=== PATIENT | female | born 1965 | race African-American/Black ===

== ENCOUNTER 2016-10-17 06:15 | Emergency (ER) | payer MEDICAID ==
[~2016-10-17] VITALS: Ht 162.6 cm; Wt 101.0 kg
[~2016-10-17 06:15] MED LIST: DIVA500T3; FLUT1DIS3; GLIM2TAB2 PO; NIFE-1; nifedipine; omeprazole
[2016-10-17] MEDS ORDERED: ACETAMINOPHEN WITH CODEINE 300/30MG TABLET PO ONE (07:30)
[2016-10-17] MEDS ORDERED: CYCLOBENZAPRINE 10MG TABLET PO ONE (07:30)
[2016-10-17 09:25] VITALS: BP 148/87
== END 2016-10-17 09:44 | disposition home or self-care (01) ==
LOC: ER 07:23
DX: M54.5 Low back pain (principal); G89.29 Other chronic pain; H10.9 Unspecified conjunctivitis; J45.909 Unspecified asthma, uncomplicated; F31.9 Bipolar disorder, unspecified; E11.9 Type 2 diabetes mellitus without complications; I10 Essential (primary) hypertension; F12.10 Cannabis abuse, uncomplicated; Z76.0 Encounter for issue of repeat prescription; Z88.1 Allergy status to other antibiotic agents; Z91.013 Allergy to seafood; Z91.018 Allergy to other foods; Z91.010 Allergy to peanuts; Z79.899 Other long term (current) drug therapy; Z98.890 Other specified postprocedural states
CPT/HCPCS: 36415; 80165; 99283

== ENCOUNTER 2016-11-07 10:47 | Emergency (ER) | payer MEDICAID ==
[~2016-11-07] VITALS: Ht 162.6 cm; Wt 102.0 kg
[2016-11-07] MEDS ORDERED: ALBUTEROL (0.083%) 2.5MG/3ML NEB HHN STA (11:33)
[2016-11-07] MEDS ORDERED: PREDNISONE 20MG TABLET PO STA (11:33)
[2016-11-07] MEDS ORDERED: IPRATROPIUM BROMIDE (0.02%) 0.5MG/2.5ML NEB HHN STA (11:33)
[2016-11-07 13:12] VITALS: BP 154/76
== END 2016-11-07 13:15 | disposition home or self-care (01) ==
LOC: ER 11:48
DX: J45.901 Unspecified asthma with (acute) exacerbation (principal); J20.9 Acute bronchitis, unspecified; Z88.1 Allergy status to other antibiotic agents; Z91.041 Radiographic dye allergy status; Z91.010 Allergy to peanuts; Z91.013 Allergy to seafood; Z91.018 Allergy to other foods; Z79.899 Other long term (current) drug therapy
CPT/HCPCS: 71010; 94640; 99283; J7512; J7611

== ENCOUNTER 2017-05-23 09:26 | Emergency (ER) | payer MEDICAID ==
[~2017-05-23] VITALS: Ht 162.6 cm; Wt 104.0 kg
[2017-05-23 09:55] VITALS: BP 152/84
[2017-05-23] MEDS ORDERED: IBUPROFEN 800MG TABLET PO ONE (10:30)
== END 2017-05-23 10:47 | disposition home or self-care (01) ==
LOC: ER 09:41
DX: Z76.0 Encounter for issue of repeat prescription (principal); I10 Essential (primary) hypertension; E11.9 Type 2 diabetes mellitus without complications; M19.90 Unspecified osteoarthritis, unspecified site; F31.9 Bipolar disorder, unspecified; Z88.1 Allergy status to other antibiotic agents; Z91.013 Allergy to seafood; Z88.8 Allergy status to other drugs, medicaments and biological substances; Z91.018 Allergy to other foods
CPT/HCPCS: 99282

== ENCOUNTER 2017-07-27 22:04 | Emergency (ER) | payer MEDICAID ==
[~2017-07-27] VITALS: Ht 162.6 cm; Wt 100.0 kg
[2017-07-27 22:29] VITALS: BP 170/95
== END 2017-07-28 03:15 | disposition left against medical advice (07) ==
LOC: ER 22:04
DX: Z53.21 Procedure and treatment not carried out due to patient leaving prior to being seen by health care provider (principal)
CPT/HCPCS: 82962

== ENCOUNTER 2017-07-28 08:34 | Emergency (ER) | payer MEDICAID ==
[~2017-07-28] VITALS: Ht 165.1 cm; Wt 100.0 kg
[2017-07-28] MEDS ORDERED: VISCOUS LIDOCAINE 2% 15 ML UDC PO STA (09:25)
[2017-07-28] MEDS ORDERED: MAGNESIUM/ALUMINUM HYDROXIDE/SIMETHICONE 30ML UDC PO STA (09:25)
[2017-07-28] MEDS ORDERED: ONDANSETRON HCL 4MG/2ML VIAL IV STA (09:25)
[2017-07-28] MEDS ORDERED: DICYCLOMINE 10 MG/5 ML ORAL SYR PO STA (09:25)
[2017-07-28] MEDS ORDERED: KETOROLAC 30MG/ML VIAL IM STA (09:25)
[2017-07-28] MEDS ORDERED: FAMOTIDINE 20MG/2ML VIAL IV STA (09:25)
[2017-07-28 09:40] LABS: HEMATOCRIT. 39.1 % (36.0-48.0); HEMOGLOBIN. 12.9 g/dL (12.0-16.0); LYMPHOCYTES % 25.9 % (20.0-50.0); MEAN CORPUSCULAR HEMOGLOBIN 23.5 pg (28.0-32.0); MEAN PLATELET VOLUME 8.5 fl (7.4-10.4); NEUTROPHILS % 64.1 % (40.0-76.0); PLATELET 289 x1000/uL (130-400); RED BLOOD CELL COUNT 5.51 mill/uL (4.2-5.4); RED CELL DISTRIBUTION WIDTH 14.2 % (11.6-14.6)
[2017-07-28 09:45] LABS: CHLORIDE 105 mEq/L (98-107)
[2017-07-28 09:46] LABS: PROTHROMBIN TIME 10.6 sec (9.4-11.6)
[2017-07-28 09:54] LABS: CARBON DIOXIDE 29 mEq/L (21-32)
[2017-07-28 10:24] VITALS: BP 182/97
[2017-07-28 10:28] LABS: CLARITY URINE CLEAR (CLEAR); COLOR URINE YELLOW (YELLOW); KETONES URINE NEGATIVE (NEGATIVE); LEUKOCYTE ESTERASE URINE 3+ (NEGATIVE); NITRITE URINE NEGATIVE (NEGATIVE); OCCULT BLOOD URINE NEGATIVE (NEGATIVE); PH URINE 5.5 (4.5-8.0); PROTEIN URINE NEGATIVE (NEGATIVE); SPECIFIC GRAVITY URINE 1.019 (1.005-1.030); UROBILINOGEN URINE 0.2 E.U./dL (0.2-1.0)
[2017-07-28] MEDS ORDERED: NITROFURANTOIN 100MG M/M CAPSULE PO ONE (11:00)
== END 2017-07-28 11:57 | disposition home or self-care (01) ==
LOC: ER 08:36
DX: N39.0 Urinary tract infection, site not specified (principal); J45.909 Unspecified asthma, uncomplicated; I10 Essential (primary) hypertension; E11.9 Type 2 diabetes mellitus without complications; Z98.890 Other specified postprocedural states; Z90.89 Acquired absence of other organs; Z88.1 Allergy status to other antibiotic agents; Z91.013 Allergy to seafood; Z91.018 Allergy to other foods
CPT/HCPCS: 36415; 80053; 81001; 83690; 85025; 85610; 87086; 96372; 96374; 96375; 99284; J1885; J2405; J3490

== ENCOUNTER 2017-08-02 22:36 | Emergency (ER) | payer MEDICAID ==
[~2017-08-02] VITALS: Ht 165.1 cm; Wt 101.0 kg
[2017-08-02 23:14] LABS: CLARITY URINE CLEAR (CLEAR); COLOR URINE YELLOW (YELLOW); KETONES URINE TRACE (NEGATIVE); LEUKOCYTE ESTERASE URINE 2+ (NEGATIVE); NITRITE URINE NEGATIVE (NEGATIVE); OCCULT BLOOD URINE NEGATIVE (NEGATIVE); PROTEIN URINE NEGATIVE (NEGATIVE); UROBILINOGEN URINE 0.2 E.U./dL (0.2-1.0)
[2017-08-03] MEDS ORDERED: KETOROLAC 30MG/ML VIAL IV ONE (01:30)
[2017-08-03] MEDS ORDERED: ONDANSETRON HCL 4MG/2ML VIAL IV ONE (01:30)
[2017-08-03 01:56] LABS: HEMATOCRIT. 38.9 % (36.0-48.0); HEMOGLOBIN. 12.9 g/dL (12.0-16.0); MEAN CORPUSCULAR HEMOGLOBIN 23.6 pg (28.0-32.0); MEAN CORPUSCULAR VOLUME 70.8 fL (81.0-99.0); MEAN PLATELET VOLUME 8.7 fl (7.4-10.4); PLATELET 282 x1000/uL (130-400); RED BLOOD CELL COUNT 5.49 mill/uL (4.2-5.4); RED CELL DISTRIBUTION WIDTH 14.5 % (11.6-14.6)
[2017-08-03 02:05] LABS: CHLORIDE 101 mEq/L (98-107); PROTHROMBIN TIME 10.4 sec (9.4-11.6)
[2017-08-03 02:14] LABS: HCG SCREEN NEGATIVE
[2017-08-03 02:17] LABS: CARBON DIOXIDE 31 mEq/L (21-32)
[2017-08-03 02:28] LABS: PLATELET ESTIMATE NORMAL
[2017-08-03] MEDS ORDERED: CEFTRIAXONE 1 G PREMIX 50 ML IV NR (04:45)
[2017-08-03 06:50] VITALS: BP 125/69
== END 2017-08-03 07:37 | disposition home or self-care (01) ==
LOC: ER 22:36
DX: N39.0 Urinary tract infection, site not specified (principal); R16.0 Hepatomegaly, not elsewhere classified; E11.9 Type 2 diabetes mellitus without complications; I10 Essential (primary) hypertension; R11.2 Nausea with vomiting, unspecified; Z88.1 Allergy status to other antibiotic agents; Z91.041 Radiographic dye allergy status; Z91.013 Allergy to seafood; Z91.018 Allergy to other foods; Z79.899 Other long term (current) drug therapy
CPT/HCPCS: 36415; 76700; 80053; 81001; 83690; 84703; 85025; 85610; 87086; 96365; 96375; 99285; J0696; J1885; J2405; Z7610

== ENCOUNTER 2017-09-07 17:53 | Emergency (ER) | payer MEDICAID ==
[~2017-09-07] VITALS: Ht 162.6 cm; Wt 100.0 kg
[2017-09-07 18:03] VITALS: BP 160/93
== END 2017-09-07 21:25 | disposition left against medical advice (07) ==
LOC: ER 18:11
DX: R06.02 Shortness of breath (principal); Z53.21 Procedure and treatment not carried out due to patient leaving prior to being seen by health care provider

== ENCOUNTER 2017-09-08 10:09 | Emergency (ER) | payer MEDICAID ==
[~2017-09-08] VITALS: Ht 162.6 cm; Wt 100.0 kg
[2017-09-08] MEDS ORDERED: IPRATROPIUM BROMIDE (0.02%) 0.5MG/2.5ML NEB HHN STA ×2 (14:39→18:23)
[2017-09-08] MEDS ORDERED: ALBUTEROL (0.083%) 2.5MG/3ML NEB HHN STA ×2 (14:39→18:23)
[2017-09-08] MEDS ORDERED: METHYLPREDNISOLONE SOD SUCC 125 MG/2 ML VIAL IV STA (14:39)
[2017-09-08] MEDS ORDERED: SODIUM CHLORIDE 0.9% 1,000 ML IV ONE (14:45)
[2017-09-08 15:16] LABS: CLARITY URINE CLEAR (CLEAR); COLOR URINE YELLOW (YELLOW); KETONES URINE NEGATIVE (NEGATIVE); LEUKOCYTE ESTERASE URINE 2+ (NEGATIVE); NITRITE URINE NEGATIVE (NEGATIVE); OCCULT BLOOD URINE NEGATIVE (NEGATIVE); PH URINE 7.5 (4.5-8.0); PROTEIN URINE NEGATIVE (NEGATIVE); SPECIFIC GRAVITY URINE 1.009 (1.005-1.030)
[2017-09-08] MEDS ORDERED: ACETAMINOPHEN 325MG TABLET PO ONE (15:45)
[2017-09-08 20:29] VITALS: BP 123/78
== END 2017-09-08 20:29 | disposition home or self-care (01) ==
LOC: ER 10:21
DX: J06.9 Acute upper respiratory infection, unspecified (principal); J45.901 Unspecified asthma with (acute) exacerbation; E11.9 Type 2 diabetes mellitus without complications; I10 Essential (primary) hypertension; Z88.3 Allergy status to other anti-infective agents; Z91.041 Radiographic dye allergy status; Z91.010 Allergy to peanuts; Z91.013 Allergy to seafood; Z91.018 Allergy to other foods; Z98.890 Other specified postprocedural states
CPT/HCPCS: 71046; 81003; 81025; 87804; 94640; 96361; 96374; 99285; J2930; J7030; J7611

== ENCOUNTER 2017-09-11 08:23 | Emergency (ER) | payer MEDICAID ==
[~2017-09-11] VITALS: Ht 162.6 cm; Wt 100.0 kg
[2017-09-11 09:17] VITALS: BP 169/87
== END 2017-09-11 10:24 | disposition left against medical advice (07) ==
LOC: ER 10:08
DX: R06.02 Shortness of breath (principal); Z53.21 Procedure and treatment not carried out due to patient leaving prior to being seen by health care provider

== ENCOUNTER 2017-10-16 07:25 | Emergency (ER) | payer MEDICAID ==
[~2017-10-16] VITALS: Ht 162.6 cm; Wt 103.0 kg
[2017-10-16 08:00] LABS: KETONES URINE NEGATIVE (NEGATIVE); LEUKOCYTE ESTERASE URINE 2+ (NEGATIVE); NITRITE URINE NEGATIVE (NEGATIVE); OCCULT BLOOD URINE NEGATIVE (NEGATIVE); PH URINE 5.5 (4.5-8.0); PROTEIN URINE NEGATIVE (NEGATIVE); SPECIFIC GRAVITY URINE 1.017 (1.005-1.030)
[2017-10-16 08:08] LABS: CLARITY URINE CLEAR (CLEAR); COLOR URINE YELLOW (YELLOW)
[2017-10-16] MEDS ORDERED: HYDROCODONE/ACETAMINOPHEN 5/325MG TABLET PO ONE (08:45)
[2017-10-16 10:19] VITALS: BP 127/76
== END 2017-10-16 10:32 | disposition home or self-care (01) ==
LOC: ER 07:25
DX: N39.0 Urinary tract infection, site not specified (principal); I10 Essential (primary) hypertension; E11.9 Type 2 diabetes mellitus without complications; J45.909 Unspecified asthma, uncomplicated; Z91.013 Allergy to seafood; Z88.1 Allergy status to other antibiotic agents; Z91.048 Other nonmedicinal substance allergy status
CPT/HCPCS: 81003; 87086; 99284

== ENCOUNTER 2017-10-18 10:06 | Emergency (ER) | payer MEDICAID ==
[~2017-10-18] VITALS: Ht 162.6 cm; Wt 103.0 kg
[2017-10-18] MEDS ORDERED: KETOROLAC 30MG/ML VIAL IM ONE (11:00)
[2017-10-18 13:00] VITALS: BP 158/79
== END 2017-10-18 13:00 | disposition home or self-care (01) ==
LOC: ER 10:51
DX: S29.011A Strain of muscle and tendon of front wall of thorax, initial encounter (principal); J45.909 Unspecified asthma, uncomplicated; I10 Essential (primary) hypertension; E11.9 Type 2 diabetes mellitus without complications; Z91.013 Allergy to seafood; Z91.018 Allergy to other foods; Z91.010 Allergy to peanuts; Z91.041 Radiographic dye allergy status; Z98.890 Other specified postprocedural states; Z90.89 Acquired absence of other organs; X50.0XXA Overexertion from strenuous movement or load, initial encounter; Y93.89 Activity, other specified; Y92.89 Other specified places as the place of occurrence of the external cause; Y99.8 Other external cause status
CPT/HCPCS: 96372; 99283; J1885; Z7610

== ENCOUNTER 2018-03-10 06:51 | Emergency (ER) | payer MEDICAID ==
[~2018-03-10] VITALS: Ht 162.6 cm; Wt 100.0 kg
[2018-03-10] MEDS ORDERED: SODIUM CHLORIDE 0.9% 1,000 ML IV ONE (09:34)
[2018-03-10] MEDS ORDERED: ONDANSETRON HCL 4MG/2ML INJ IV STA (09:34)
[2018-03-10] MEDS ORDERED: KETOROLAC 30MG/ML VIAL IV STA (09:34)
[2018-03-10 10:01] LABS: CLARITY URINE CLEAR (CLEAR); COLOR URINE YELLOW (YELLOW); KETONES URINE TRACE (NEGATIVE); LEUKOCYTE ESTERASE URINE 2+ (NEGATIVE); NITRITE URINE NEGATIVE (NEGATIVE); OCCULT BLOOD URINE NEGATIVE (NEGATIVE); PH URINE 7.5 (4.5-8.0); PROTEIN URINE NEGATIVE (NEGATIVE); SPECIFIC GRAVITY URINE 1.018 (1.005-1.030)
[2018-03-10 10:06] LABS: CHLORIDE 103 mEq/L (98-107)
[2018-03-10 10:13] LABS: PROTHROMBIN TIME 10.2 sec (9.1-11.1)
[2018-03-10 11:45] LABS: BASOPHILS % 0.4 % (0.0-2.0); EOSINOPHILS % 1.6 % (0.0-5.0); HEMATOCRIT. 41.3 % (36.0-48.0); HEMOGLOBIN. 13.5 g/dL (12.0-16.0); LYMPHOCYTES % 37.1 % (20.0-50.0); MEAN CORPUSCULAR HEMOGLOBIN 23.1 pg (28.0-32.0); MEAN PLATELET VOLUME 9.7 fl (7.4-10.4); MONOCYTES % 7.1 % (2.0-8.0); NEUTROPHILS % 53.8 % (40.0-76.0); PLATELET 281 x1000/uL (130-400); RED BLOOD CELL COUNT 5.81 mill/uL (4.2-5.4); RED CELL DISTRIBUTION WIDTH 15.4 % (11.6-14.6)
[2018-03-10 12:04] VITALS: BP 146/77
== END 2018-03-10 12:45 | disposition home or self-care (01) ==
LOC: ER 07:32
DX: N39.0 Urinary tract infection, site not specified (principal); K76.0 Fatty (change of) liver, not elsewhere classified; R03.0 Elevated blood-pressure reading, without diagnosis of hypertension
CPT/HCPCS: 36415; 76705; 80053; 81003; 83690; 85025; 85610; 96374; 96375; 99285; J1885; J2405; J7030

== ENCOUNTER 2018-04-18 12:36 | Emergency (ER) | payer MEDICAID ==
[~2018-04-18] VITALS: Ht 162.6 cm; Wt 105.0 kg
[2018-04-18] MEDS ORDERED: VISCOUS LIDOCAINE 2% 15 ML UDC PO STA (13:40)
[2018-04-18] MEDS ORDERED: MAGNESIUM/ALUMINUM HYDROXIDE/SIMETHICONE 30ML UDC PO STA (13:40)
[2018-04-18] MEDS ORDERED: IPRATROPIUM BROMIDE (0.02%) 0.5MG/2.5ML NEB HHN STA (13:40)
[2018-04-18] MEDS ORDERED: FAMOTIDINE 20MG TABLET PO ONE (13:45)
[2018-04-18] MEDS ORDERED: ALBUTEROL (0.083%) 2.5MG/3ML NEB HHN SCH (14:00)
[2018-04-18 15:17] LABS: BASOPHILS % 2.1 % (0.0-2.0); EOSINOPHILS % 0.9 % (0.0-5.0); HEMATOCRIT. 39.9 % (36.0-48.0); HEMOGLOBIN. 13.1 g/dL (12.0-16.0); LYMPHOCYTES % 35.8 % (20.0-50.0); MEAN CORPUSCULAR HEMOGLOBIN 23.3 pg (28.0-32.0); MEAN CORPUSCULAR VOLUME 70.8 fL (81.0-99.0); MEAN PLATELET VOLUME 9.1 fl (7.4-10.4); MONOCYTES % 6.4 % (2.0-8.0); NEUTROPHILS % 54.8 % (40.0-76.0); PLATELET 295 x1000/uL (130-400); RED BLOOD CELL COUNT 5.64 mill/uL (4.2-5.4); RED CELL DISTRIBUTION WIDTH 15.3 % (11.6-14.6)
[2018-04-18 15:22] LABS: PROTHROMBIN TIME 10.2 sec (9.1-11.1)
[2018-04-18 15:25] LABS: CHLORIDE 104 mEq/L (98-107)
[2018-04-18 15:37] LABS: CLARITY URINE CLEAR (CLEAR); COLOR URINE YELLOW (YELLOW); KETONES URINE TRACE (NEGATIVE); LEUKOCYTE ESTERASE URINE 2+ (NEGATIVE); NITRITE URINE NEGATIVE (NEGATIVE); OCCULT BLOOD URINE NEGATIVE (NEGATIVE); PROTEIN URINE NEGATIVE (NEGATIVE); SPECIFIC GRAVITY URINE 1.022 (1.005-1.030)
[2018-04-18 17:08] VITALS: BP 143/78
== END 2018-04-18 17:09 | disposition home or self-care (01) ==
LOC: ER 15:14
DX: J06.9 Acute upper respiratory infection, unspecified (principal); N39.0 Urinary tract infection, site not specified; J45.909 Unspecified asthma, uncomplicated; E11.9 Type 2 diabetes mellitus without complications; F12.10 Cannabis abuse, uncomplicated; Z98.890 Other specified postprocedural states; Z90.49 Acquired absence of other specified parts of digestive tract; Z88.1 Allergy status to other antibiotic agents; Z91.013 Allergy to seafood; Z91.041 Radiographic dye allergy status; Z91.018 Allergy to other foods
CPT/HCPCS: 36415; 71045; 80053; 81003; 81025; 83880; 84484; 85025; 85610; 93005; 94640; 99285; J7611

== ENCOUNTER 2018-05-21 12:28 | Emergency (ER) | payer MEDICAID ==
[~2018-05-21] VITALS: Ht 162.6 cm; Wt 105.6 kg
[2018-05-21 13:07] VITALS: BP 175/92
== END 2018-05-21 15:10 | disposition left against medical advice (07) ==
LOC: ER 12:28
DX: Z53.21 Procedure and treatment not carried out due to patient leaving prior to being seen by health care provider (principal)

== ENCOUNTER 2018-09-28 01:27 | Inpatient (IN) | payer MEDICAID ==
[~2018-09-28] VITALS: Ht 167.6 cm; Wt 95.3 kg
[2018-09-28 02:40] LABS: CLARITY URINE CLEAR (CLEAR); COLOR URINE YELLOW (YELLOW); KETONES URINE NEGATIVE (NEGATIVE); LEUKOCYTE ESTERASE URINE 1+ (NEGATIVE); NITRITE URINE NEGATIVE (NEGATIVE); OCCULT BLOOD URINE NEGATIVE (NEGATIVE); PH URINE 6.5 (4.5-8.0); PROTEIN URINE NEGATIVE (NEGATIVE); SPECIFIC GRAVITY URINE 1.023 (1.005-1.030)
[2018-09-28] MEDS ORDERED: KETOROLAC 30MG/ML VIAL IV STA (03:36)
[2018-09-28] MEDS ORDERED: SODIUM CHLORIDE 0.9% 1,000 ML IV ONE (03:36)
[2018-09-28] MEDS ORDERED: ONDANSETRON HCL 4MG/2ML INJ IV ONE (03:45)
[2018-09-28] MEDS ORDERED: FAMOTIDINE 20MG/2ML VIAL IV ONE (03:45)
[2018-09-28 03:51] LABS: BASOPHILS % 1.7 % (0.0-2.0); CHLORIDE 107 mEq/L (98-107); EOSINOPHILS % 1.3 % (0.0-5.0); HEMATOCRIT. 37.3 % (36.0-48.0); HEMOGLOBIN. 12.3 g/dL (12.0-16.0); LYMPHOCYTES % 33.3 % (20.0-50.0); MEAN CORPUSCULAR HEMOGLOBIN 22.9 pg (28.0-32.0); MEAN CORPUSCULAR VOLUME 69.6 fL (81.0-99.0); NEUTROPHILS % 56.7 % (40.0-76.0); PLATELET 310 x1000/uL (130-400); RED BLOOD CELL COUNT 5.36 mill/uL (4.2-5.4); RED CELL DISTRIBUTION WIDTH 14.4 % (11.6-14.6)
[2018-09-28 05:44] LABS: PLATELET ESTIMATE NORMAL
[2018-09-28] MEDS ORDERED: IBUPROFEN 600MG TABLET PO PRN (06:15)
[2018-09-28 10:00] VITALS: BP 148/81
[2018-09-28] MEDS ORDERED: DEXTROSE 50% WATER 50ML SYRINGE IV PRN (12:00)
[2018-09-28] MEDS ORDERED: ONDANSETRON HCL 4MG/2ML INJ IV PRN (12:00)
[2018-09-28 12:08] VITALS: BP 148/81
[2018-09-28] MEDS: BLOOD SUGAR DIAGNOSTIC STRIP TEST SCH ×3 (12:20→21:33)
[2018-09-28] MEDS: INSULIN LISPRO 100 UNITS/ML SUBCUT SCH ×3 (12:50→21:00)
[2018-09-28] MEDS ORDERED: SODIUM CHLORIDE 0.9% 1,000 ML IV SCH (13:00)
[2018-09-28] MEDS ORDERED: CEFTRIAXONE 1 G PREMIX 50 ML IV SCH (14:00)
[2018-09-28 14:30] LABS: *AMPHETAMINES SCREEN URINE NEGATIVE (NEGATIVE); *BARBITURATES SCREEN URINE NEGATIVE (NEGATIVE); *BENZODIAZEPINES SCREEN URINE NEGATIVE (NEGATIVE); *COCAINE SCREEN URINE NEGATIVE (NEGATIVE); CANNABINOID URINE SCREEN PRESUMTIVE POSITIVE (NEGATIVE); METHADONE URINE SCREEN NEGATIVE (NEGATIVE); OPIATES URINE SCREEN NEGATIVE (NEGATIVE); PHENCYCLIDINE URINE SCREEN NEGATIVE (NEGATIVE)
[2018-09-28] MEDS: PANTOPRAZOLE SODIUM 40 MG/VIAL IV SCH (14:45)
[2018-09-28] MEDS: MORPHINE SULFATE 4 MG/ML CPJ (NOT FOR IM USE) IV PRN ×2 (15:58→21:15)
[2018-09-28 16:00] VITALS: BP 153/76
[2018-09-28] MEDS ORDERED: IPRATROPIUM/ALBUTEROL 0.5-3(2.5)MG/3ML NEB HHN PRN (18:30)
[2018-09-28 20:00] VITALS: BP 131/66
[2018-09-28] MEDS ORDERED: AMLODIPINE 5MG TABLET PO SCH (21:00)
[2018-09-29] VITALS: BP 124/73
[2018-09-29 04:00] VITALS: BP 146/89
[2018-09-29] MEDS: KETOROLAC 30MG/ML VIAL IV PRN ×2 (04:31→11:11)
[2018-09-29 07:27] LABS: BASOPHILS % 0.7 % (0.0-2.0); EOSINOPHILS % 2.1 % (0.0-5.0); HEMOGLOBIN. 12.1 g/dL (12.0-16.0); LYMPHOCYTES % 28.7 % (20.0-50.0); MEAN CORPUSCULAR HEMOGLOBIN 22.8 pg (28.0-32.0); MEAN CORPUSCULAR VOLUME 71.5 fL (81.0-99.0); MEAN PLATELET VOLUME 8.7 fl (7.4-10.4); MONOCYTES % 8.6 % (2.0-8.0); NEUTROPHILS % 59.9 % (40.0-76.0); PLATELET 294 x1000/uL (130-400); RED BLOOD CELL COUNT 5.32 mill/uL (4.2-5.4); RED CELL DISTRIBUTION WIDTH 14.5 % (11.6-14.6)
[2018-09-29] MEDS: BLOOD SUGAR DIAGNOSTIC STRIP TEST SCH (07:44)
[2018-09-29 08:00] VITALS: BP 130/73
[2018-09-29 08:28] LABS: CHLORIDE 108 mEq/L (98-107)
[2018-09-29] MEDS: PANTOPRAZOLE SODIUM 40 MG/VIAL IV SCH (09:28)
[2018-09-29] MEDS ORDERED: NIFEDIPINE XL 30MG TAB PO SCH (09:30)
[2018-09-29] MEDS ORDERED: DIVALPROEX SODIUM 500MG ER TABLET PO SCH ×3 (09:30→10:00)
[2018-09-29 12:00] VITALS: BP 145/69
[2018-09-29 13:13] VITALS: BP 137/69
[2018-09-30] MEDS ORDERED: DIVALPROEX SODIUM 500MG ER TABLET PO SCH (09:00)
[2018-09-30] MEDS ORDERED: GLIMEPIRIDE 1MG TABLET PO SCH (12:00)
== END 2018-09-29 13:50 | disposition home or self-care (01) | DRG 241 ==
LOC: ER 01:27 → 6EST 06:06 → ENRESERV 07:38
PROVIDERS: ADMIT Internal Medicine; ATTEND Internal Medicine
DX: K29.70 Gastritis, unspecified, without bleeding (principal); K85.90 Acute pancreatitis without necrosis or infection, unspecified; E11.9 Type 2 diabetes mellitus without complications; I10 Essential (primary) hypertension; F12.90 Cannabis use, unspecified, uncomplicated; E66.9 Obesity, unspecified; J45.909 Unspecified asthma, uncomplicated; F31.9 Bipolar disorder, unspecified; K21.9 Gastro-esophageal reflux disease without esophagitis; K27.9 Peptic ulcer, site unspecified, unspecified as acute or chronic, without hemorrhage or perforation; Z71.3 Dietary counseling and surveillance; Z82.49 Family history of ischemic heart disease and other diseases of the circulatory system; Z88.1 Allergy status to other antibiotic agents; Z91.041 Radiographic dye allergy status; Z91.010 Allergy to peanuts; Z91.013 Allergy to seafood; Z88.7 Allergy status to serum and vaccine; Z91.018 Allergy to other foods; Z79.899 Other long term (current) drug therapy; Z98.891 History of uterine scar from previous surgery
CPT/HCPCS: 36415; 71045; 80048; 80305; 82962; 83036; 84478; 93970; 96361; 96365; 96375; 99285; C9113; J0696; J1885; J2270; J2405; J3490; J7030

== ENCOUNTER 2019-08-07 00:12 | Emergency (ER) | payer MEDICAID ==
[~2019-08-07] VITALS: Ht 162.6 cm; Wt 98.0 kg
[~2019-08-07 00:12] MED LIST changes: -GLIM2TAB2 PO; +GLIM2TAB30 PO; -NIFE-1; +NIFE-53
[2019-08-07] MEDS ORDERED: SODIUM CHLORIDE 0.9% 1,000 ML IV ONE (01:51)
[2019-08-07] MEDS ORDERED: ACETAMINOPHEN 325MG TABLET PO STA (01:51)
[2019-08-07 02:10] LABS: BASOPHILS % 1.7 % (0.0-2.0); HEMATOCRIT. 38.6 % (36.0-48.0); HEMOGLOBIN. 12.6 g/dL (12.0-16.0); LYMPHOCYTES % 29.7 % (20.0-50.0); MEAN CORPUSCULAR VOLUME 70.7 fL (81.0-99.0); MEAN PLATELET VOLUME 8.4 fl (7.4-10.4); MONOCYTES % 10.2 % (2.0-8.0); NEUTROPHILS % 56.4 % (40.0-76.0); PLATELET 317 x1000/uL (130-400); RED BLOOD CELL COUNT 5.47 mill/uL (4.2-5.4); RED CELL DISTRIBUTION WIDTH 13.9 % (11.6-14.6)
[2019-08-07 02:15] LABS: CHLORIDE 101 mEq/L (98-107)
[2019-08-07 06:33] LABS: CLARITY URINE CLEAR (CLEAR); COLOR URINE YELLOW (YELLOW); KETONES URINE NEGATIVE (NEGATIVE); LEUKOCYTE ESTERASE URINE 3+ (NEGATIVE); NITRITE URINE NEGATIVE (NEGATIVE); OCCULT BLOOD URINE NEGATIVE (NEGATIVE); PH URINE 5.5 (4.5-8.0); PROTEIN URINE NEGATIVE (NEGATIVE); SPECIFIC GRAVITY URINE 1.019 (1.005-1.030); UROBILINOGEN URINE 0.2 E.U./dL (0.2-1.0)
[2019-08-07] MEDS ORDERED: CEPHALEXIN 250MG CAPSULE PO ONE (07:30)
[2019-08-07 07:38] VITALS: BP 172/99
== END 2019-08-07 07:40 | disposition home or self-care (01) ==
LOC: ER 00:12
DX: J45.909 Unspecified asthma, uncomplicated (principal); I10 Essential (primary) hypertension; E11.9 Type 2 diabetes mellitus without complications; F12.10 Cannabis abuse, uncomplicated; Z79.899 Other long term (current) drug therapy; Z88.1 Allergy status to other antibiotic agents; Z91.013 Allergy to seafood; Z91.041 Radiographic dye allergy status; Z91.018 Allergy to other foods; Z98.890 Other specified postprocedural states
CPT/HCPCS: 36415; 71045; 80053; 81003; 85025; 87086; 87804; 99284; J7030

== ENCOUNTER 2019-11-07 08:53 | Emergency (ER) | payer MEDICAID ==
[~2019-11-07] VITALS: Ht 162.6 cm; Wt 106.5 kg
[2019-11-07 09:08] VITALS: BP 159/86
[2019-11-07] MEDS ORDERED: TETRACAINE 0.5% OPHTH DROPS 4ML LEFTEYE ONE (10:00)
[2019-11-07] MEDS ORDERED: FLUORESCEIN SODIUM 1MG/STRIP LEFTEYE ONE (10:00)
== END 2019-11-07 10:06 | disposition home or self-care (01) ==
LOC: ER 09:07
DX: H57.12 Ocular pain, left eye (principal); I10 Essential (primary) hypertension; E11.9 Type 2 diabetes mellitus without complications
CPT/HCPCS: 99283

== ENCOUNTER 2019-12-21 08:14 | Emergency (ER) | payer MEDICAID ==
[~2019-12-21] VITALS: Ht 162.6 cm; Wt 109.0 kg
[2019-12-21] MEDS ORDERED: KETOROLAC 30MG/ML VIAL IV ONE (09:00)
[2019-12-21 09:44] LABS: BASOPHILS % 2.5 % (0.0-2.0); EOSINOPHILS % 2.2 % (0.0-5.0); HEMATOCRIT. 38.9 % (36.0-48.0); HEMOGLOBIN. 13.1 g/dL (12.0-16.0); LYMPHOCYTES % 35.3 % (20.0-50.0); MEAN CORPUSCULAR HEMOGLOBIN 23.6 pg (28.0-32.0); MEAN CORPUSCULAR VOLUME 70.4 fL (81.0-99.0); MEAN PLATELET VOLUME 9.3 fl (7.4-10.4); MONOCYTES % 6.7 % (2.0-8.0); NEUTROPHILS % 53.3 % (40.0-76.0); PLATELET 290 x1000/uL (130-400); RED BLOOD CELL COUNT 5.53 mill/uL (4.2-5.4)
[2019-12-21 09:49] LABS: CHLORIDE 102 mEq/L (98-107)
[2019-12-21 10:51] LABS: CLARITY URINE CLEAR (CLEAR); COLOR URINE YELLOW (YELLOW); KETONES URINE TRACE (NEGATIVE); LEUKOCYTE ESTERASE URINE 2+ (NEGATIVE); NITRITE URINE NEGATIVE (NEGATIVE); OCCULT BLOOD URINE NEGATIVE (NEGATIVE); PH URINE 5.5 (4.5-8.0); PROTEIN URINE NEGATIVE (NEGATIVE); SPECIFIC GRAVITY URINE 1.022 (1.005-1.030)
[2019-12-21] MEDS ORDERED: FLUCONAZOLE 100MG TABLET PO ONE (11:30)
[2019-12-21] MEDS ORDERED: ACETAMINOPHEN WITH CODEINE 300/30MG TABLET PO ONE (11:30)
[2019-12-21 12:01] VITALS: BP 131/70
== END 2019-12-21 12:07 | disposition home or self-care (01) ==
LOC: ER 08:14
DX: N39.0 Urinary tract infection, site not specified (principal); D25.9 Leiomyoma of uterus, unspecified; E11.9 Type 2 diabetes mellitus without complications; I10 Essential (primary) hypertension; J45.909 Unspecified asthma, uncomplicated; F12.10 Cannabis abuse, uncomplicated; Z98.890 Other specified postprocedural states; Z88.1 Allergy status to other antibiotic agents; Z91.041 Radiographic dye allergy status; Z91.010 Allergy to peanuts; Z88.7 Allergy status to serum and vaccine; Z91.018 Allergy to other foods; Z91.013 Allergy to seafood
CPT/HCPCS: 36415; 76830; 76856; 80053; 81003; 81025; 85025; 86850; 86900; 86901; 87086; 96374; 99284; J1885

== ENCOUNTER 2020-01-14 06:41 | Emergency (ER) | payer MEDICAID ==
[~2020-01-14] VITALS: Ht 162.6 cm; Wt 100.0 kg
[2020-01-14] MEDS ORDERED: IBUPROFEN 600MG TABLET PO ONE (07:45)
[2020-01-14] MEDS ORDERED: ACETAMINOPHEN 325MG TABLET PO ONE (08:15)
[2020-01-14 08:19] LABS: CLARITY URINE CLEAR (CLEAR); COLOR URINE YELLOW (YELLOW); KETONES URINE TRACE (NEGATIVE); LEUKOCYTE ESTERASE URINE 1+ (NEGATIVE); NITRITE URINE NEGATIVE (NEGATIVE); OCCULT BLOOD URINE NEGATIVE (NEGATIVE); PROTEIN URINE NEGATIVE (NEGATIVE); SPECIFIC GRAVITY URINE 1.027 (1.005-1.030); UROBILINOGEN URINE 0.2 E.U./dL (0.2-1.0)
[2020-01-14 08:51] VITALS: BP 159/94
== END 2020-01-14 08:54 | disposition home or self-care (01) ==
LOC: ER 06:41
DX: N30.00 Acute cystitis without hematuria (principal); J45.909 Unspecified asthma, uncomplicated; I10 Essential (primary) hypertension; F31.9 Bipolar disorder, unspecified; Z98.890 Other specified postprocedural states; Z88.1 Allergy status to other antibiotic agents; Z91.013 Allergy to seafood; Z91.018 Allergy to other foods; Z91.041 Radiographic dye allergy status; Z91.010 Allergy to peanuts; Z88.7 Allergy status to serum and vaccine
CPT/HCPCS: 81003; 81025; 99283

== ENCOUNTER 2020-06-17 11:32 | Emergency (ER) | payer MEDICAID, OTHER ==
[~2020-06-17] VITALS: Ht 162.6 cm; Wt 105.0 kg
[2020-06-17 12:10] LABS: CLARITY URINE CLEAR (CLEAR); COLOR URINE YELLOW (YELLOW); KETONES URINE TRACE (NEGATIVE); LEUKOCYTE ESTERASE URINE 2+ (NEGATIVE); NITRITE URINE NEGATIVE (NEGATIVE); OCCULT BLOOD URINE NEGATIVE (NEGATIVE); PROTEIN URINE NEGATIVE (NEGATIVE); SPECIFIC GRAVITY URINE 1.019 (1.005-1.030)
[2020-06-17 12:30] VITALS: BP 138/78
== END 2020-06-17 12:30 | disposition home or self-care (01) ==
LOC: ER 11:32
DX: N30.00 Acute cystitis without hematuria (principal); I10 Essential (primary) hypertension; J45.909 Unspecified asthma, uncomplicated; Z91.013 Allergy to seafood; Z91.018 Allergy to other foods; Z88.8 Allergy status to other drugs, medicaments and biological substances; Z79.899 Other long term (current) drug therapy; Z98.890 Other specified postprocedural states
CPT/HCPCS: 81003; 81025; 99283

== ENCOUNTER 2020-12-27 08:37 | Emergency (ER) | payer MEDICAID, OTHER ==
[~2020-12-27] VITALS: Ht 162.6 cm; Wt 93.0 kg
[2020-12-27] MEDS ORDERED: CEPH500T MT (08:54)
[2020-12-27] MEDS ORDERED: FLUCONAZOLE 100MG TABLET PO ONE (09:00)
[2020-12-27] MEDS ORDERED: FLUCONAZOLE 150MG TABLET PO SCH (09:15)
[2020-12-27 09:17] VITALS: BP 149/86
[2020-12-27 09:20] LABS: CLARITY URINE CLEAR (CLEAR); COLOR URINE YELLOW (YELLOW); KETONES URINE TRACE (NEGATIVE); LEUKOCYTE ESTERASE URINE 2+ (NEGATIVE); NITRITE URINE NEGATIVE (NEGATIVE); OCCULT BLOOD URINE NEGATIVE (NEGATIVE); PH URINE 5.5 (4.5-8.0); PROTEIN URINE NEGATIVE (NEGATIVE); SPECIFIC GRAVITY URINE 1.027 (1.005-1.030)
== END 2020-12-27 09:19 | disposition home or self-care (01) ==
LOC: ER 08:37
DX: N39.0 Urinary tract infection, site not specified (principal); I10 Essential (primary) hypertension; J45.909 Unspecified asthma, uncomplicated; Z91.013 Allergy to seafood; Z88.1 Allergy status to other antibiotic agents; Z91.018 Allergy to other foods; Z88.8 Allergy status to other drugs, medicaments and biological substances; Z79.899 Other long term (current) drug therapy; Z98.890 Other specified postprocedural states
CPT/HCPCS: 81003; 99283

== ENCOUNTER 2020-12-29 07:16 | Emergency (ER) | payer OTHER ==
[~2020-12-29] VITALS: Ht 165.1 cm; Wt 88.0 kg
[~2020-12-29 07:16] MED LIST changes: +CEPH500T MT
[2020-12-29] MEDS ORDERED: VISCOUS LIDOCAINE 2% 15 ML UDC PO STA (08:37)
[2020-12-29] MEDS ORDERED: MAGNESIUM/ALUMINUM HYDROXIDE/SIMETHICONE 30ML UDC PO STA (08:37)
[2020-12-29] MEDS ORDERED: PHEN-815 MT (09:26)
[2020-12-29] MEDS ORDERED: TRAM50TA3 MT (09:26)
[2020-12-29] MEDS ORDERED: MAG-55 MT (09:26)
[2020-12-29 09:30] VITALS: BP 168/88
== END 2020-12-29 09:58 | disposition home or self-care (01) ==
LOC: ER 07:16
DX: B37.49 Other urogenital candidiasis (principal); E11.9 Type 2 diabetes mellitus without complications; I10 Essential (primary) hypertension; Z87.11 Personal history of peptic ulcer disease
CPT/HCPCS: 99283

== ENCOUNTER 2021-05-28 08:58 | Emergency (ER) | payer MEDICAID, OTHER ==
[~2021-05-28] VITALS: Ht 162.6 cm; Wt 105.0 kg
[~2021-05-28 08:58] MED LIST changes: +MAG-55 MT; +PHEN-815 MT; +TRAM50TA3 MT
[2021-05-28 09:14] VITALS: BP 166/97
[2021-05-28 10:01] LABS: CLARITY URINE CLEAR (CLEAR); COLOR URINE YELLOW (YELLOW); KETONES URINE NEGATIVE (NEGATIVE); LEUKOCYTE ESTERASE URINE 2+ (NEGATIVE); NITRITE URINE NEGATIVE (NEGATIVE); OCCULT BLOOD URINE NEGATIVE (NEGATIVE); PROTEIN URINE NEGATIVE (NEGATIVE); SPECIFIC GRAVITY URINE 1.016 (1.005-1.030)
[2021-05-28] MEDS ORDERED: CEPH500T MT (11:18)
[2021-05-28] MEDS ORDERED: HYDR-4001 MT (11:32)
== END 2021-05-28 11:43 | disposition home or self-care (01) ==
LOC: ER 08:58
DX: N39.0 Urinary tract infection, site not specified (principal); E11.9 Type 2 diabetes mellitus without complications; I10 Essential (primary) hypertension; Z98.890 Other specified postprocedural states; F12.10 Cannabis abuse, uncomplicated; Z79.899 Other long term (current) drug therapy; Z88.5 Allergy status to narcotic agent
CPT/HCPCS: 81003; 81025; 87210; 99283

== ENCOUNTER 2021-08-01 08:09 | Emergency (ER) | payer MEDICAID, OTHER ==
[~2021-08-01] VITALS: Ht 162.6 cm; Wt 100.0 kg
[~2021-08-01 08:09] MED LIST changes: +HYDR-4001 MT
[2021-08-01] MEDS ORDERED: HYDROCODONE/ACETAMINOPHEN 5/325MG TABLET PO STA (08:44)
[2021-08-01 09:14] VITALS: BP 186/83
[2021-08-01 09:19] LABS: CLARITY URINE CLEAR (CLEAR); COLOR URINE YELLOW (YELLOW); KETONES URINE NEGATIVE (NEGATIVE); LEUKOCYTE ESTERASE URINE TRACE (NEGATIVE); NITRITE URINE NEGATIVE (NEGATIVE); OCCULT BLOOD URINE NEGATIVE (NEGATIVE); PROTEIN URINE NEGATIVE (NEGATIVE); SPECIFIC GRAVITY URINE 1.014 (1.005-1.030)
[2021-08-01 09:24] LABS: BASOPHILS % 0.7 % (0.0-2.0); EOSINOPHILS % 2.5 % (0.0-5.0); LYMPHOCYTES % 29.2 % (20.0-50.0); MEAN CORPUSCULAR HEMOGLOBIN 23.2 pg (28.0-32.0); MEAN CORPUSCULAR VOLUME 69.4 fL (81.0-99.0); MEAN PLATELET VOLUME 9.2 fl (7.4-10.4); MONOCYTES % 6.1 % (2.0-8.0); NEUTROPHILS % 61.5 % (40.0-76.0); PLATELET 284 x1000/uL (130-400); RED BLOOD CELL COUNT 5.63 mill/uL (4.2-5.4); RED CELL DISTRIBUTION WIDTH 14.5 % (11.6-14.6)
[2021-08-01 09:39] LABS: CHLORIDE 103 mEq/L (98-107)
[2021-08-01 10:22] LABS: PLATELET ESTIMATE NORMAL
[2021-08-01] MEDS ORDERED: NITR-87 MT (11:29)
[2021-08-01] MEDS ORDERED: PYR200 MT (11:29)
[2021-08-01] MEDS ORDERED: CEPH500T MT (11:38)
== END 2021-08-01 11:48 | disposition home or self-care (01) ==
LOC: ER 08:09
DX: N39.0 Urinary tract infection, site not specified (principal); F12.10 Cannabis abuse, uncomplicated; E11.9 Type 2 diabetes mellitus without complications; I10 Essential (primary) hypertension; J45.909 Unspecified asthma, uncomplicated; Z20.822 Contact with and (suspected) exposure to COVID-19; Z91.041 Radiographic dye allergy status; Z91.018 Allergy to other foods; Z88.1 Allergy status to other antibiotic agents; Z91.013 Allergy to seafood; Z79.899 Other long term (current) drug therapy; Z91.010 Allergy to peanuts; Z98.890 Other specified postprocedural states
CPT/HCPCS: 36415; 71045; 80053; 81003; 85025; 87426; 87804; 99284

== ENCOUNTER 2021-11-04 10:21 | Emergency (ER) | payer MEDICAID, OTHER ==
[~2021-11-04] VITALS: Ht 162.6 cm; Wt 102.0 kg
[~2021-11-04 10:21] MED LIST changes: +NITR-87 MT; +PYR200 MT
[2021-11-04] MEDS ORDERED: PANTOPRAZOLE 40MG DR TABLET PO ONE (11:45)
[2021-11-04 12:08] LABS: BASOPHILS % 1.3 % (0.0-2.0); EOSINOPHILS % 4.4 % (0.0-5.0); HEMATOCRIT. 39.2 % (36.0-48.0); HEMOGLOBIN. 12.9 g/dL (12.0-16.0); LYMPHOCYTES % 30.5 % (20.0-50.0); MEAN CORPUSCULAR HEMOGLOBIN 22.7 pg (28.0-32.0); MEAN CORPUSCULAR VOLUME 68.9 fL (81.0-99.0); MONOCYTES % 5.4 % (2.0-8.0); NEUTROPHILS % 58.4 % (40.0-76.0); PLATELET 282 x1000/uL (130-400); RED BLOOD CELL COUNT 5.68 mill/uL (4.2-5.4); RED CELL DISTRIBUTION WIDTH 14.4 % (11.6-14.6)
[2021-11-04 12:16] LABS: CHLORIDE 101 mEq/L (98-107)
[2021-11-04 12:20] LABS: HCG SCREEN NEGATIVE; PLATELET ESTIMATE NORMAL
[2021-11-04 12:52] LABS: CLARITY URINE CLEAR (CLEAR); COLOR URINE YELLOW (YELLOW); KETONES URINE TRACE (NEGATIVE); LEUKOCYTE ESTERASE URINE 1+ (NEGATIVE); NITRITE URINE NEGATIVE (NEGATIVE); OCCULT BLOOD URINE NEGATIVE (NEGATIVE); PH URINE 5.5 (4.5-8.0); PROTEIN URINE TRACE (NEGATIVE); SPECIFIC GRAVITY URINE 1.031 (1.005-1.030)
[2021-11-04] MEDS ORDERED: PROT40 MT (13:39)
[2021-11-04] MEDS ORDERED: CEPH500C2 MT (13:39)
[2021-11-04 14:04] VITALS: BP 127/79
== END 2021-11-04 14:05 | disposition home or self-care (01) ==
LOC: ER 10:33
DX: N39.0 Urinary tract infection, site not specified (principal)
CPT/HCPCS: 36415; 80053; 81003; 84703; 85025; 93005; 99284

== ENCOUNTER 2022-03-03 08:39 | Emergency (ER) | payer OTHER ==
[~2022-03-03] VITALS: Ht 162.6 cm; Wt 102.0 kg
[~2022-03-03 08:39] MED LIST changes: +CEPH500C2 MT; +PROT40 MT
[2022-03-03 09:15] LABS: CLARITY URINE CLEAR (CLEAR); COLOR URINE YELLOW (YELLOW); KETONES URINE TRACE (NEGATIVE); LEUKOCYTE ESTERASE URINE 2+ (NEGATIVE); NITRITE URINE NEGATIVE (NEGATIVE); OCCULT BLOOD URINE NEGATIVE (NEGATIVE); PH URINE 5.5 (4.5-8.0); PROTEIN URINE NEGATIVE (NEGATIVE); SPECIFIC GRAVITY URINE 1.023 (1.005-1.030)
[2022-03-03] MEDS ORDERED: CEPH500C2 MT (09:48)
[2022-03-03 09:59] VITALS: BP 142/72
== END 2022-03-03 10:01 | disposition home or self-care (01) ==
LOC: ER 08:57
DX: N39.0 Urinary tract infection, site not specified (principal); I10 Essential (primary) hypertension
CPT/HCPCS: 81003; 99283

== ENCOUNTER 2022-04-03 08:46 | Emergency (ER) | payer OTHER ==
[~2022-04-03] VITALS: Ht 162.6 cm; Wt 102.0 kg
[2022-04-03 08:53] VITALS: BP 163/76
[2022-04-03 11:24] LABS: CLARITY URINE CLEAR (CLEAR); COLOR URINE YELLOW (YELLOW); KETONES URINE TRACE (NEGATIVE); LEUKOCYTE ESTERASE URINE 1+ (NEGATIVE); NITRITE URINE NEGATIVE (NEGATIVE); OCCULT BLOOD URINE NEGATIVE (NEGATIVE); PH URINE 5.5 (4.5-8.0); PROTEIN URINE NEGATIVE (NEGATIVE); SPECIFIC GRAVITY URINE 1.021 (1.005-1.030); UROBILINOGEN URINE 0.2 E.U./dL (0.2-1.0)
[2022-04-03] MEDS ORDERED: CEPH500C2 MT (11:27)
== END 2022-04-03 11:47 | disposition home or self-care (01) ==
LOC: ER 08:46
DX: N39.0 Urinary tract infection, site not specified (principal); F12.10 Cannabis abuse, uncomplicated; J45.909 Unspecified asthma, uncomplicated; E11.9 Type 2 diabetes mellitus without complications; Z91.041 Radiographic dye allergy status; Z88.1 Allergy status to other antibiotic agents; Z91.018 Allergy to other foods; Z79.899 Other long term (current) drug therapy; Z98.890 Other specified postprocedural states
CPT/HCPCS: 81003; 99283

== ENCOUNTER 2022-05-13 07:26 | Emergency (ER) | payer OTHER ==
[~2022-05-13] VITALS: Ht 162.6 cm; Wt 102.0 kg
[2022-05-13 07:34] VITALS: BP 157/68
[2022-05-13] MEDS ORDERED: IBUPROFEN 400MG TABLET PO ONE (08:30)
[2022-05-13 09:06] LABS: CLARITY URINE CLEAR (CLEAR); COLOR URINE YELLOW (YELLOW); KETONES URINE TRACE (NEGATIVE); LEUKOCYTE ESTERASE URINE 2+ (NEGATIVE); NITRITE URINE NEGATIVE (NEGATIVE); OCCULT BLOOD URINE NEGATIVE (NEGATIVE); PH URINE 6.5 (4.5-8.0); PROTEIN URINE NEGATIVE (NEGATIVE); SPECIFIC GRAVITY URINE 1.021 (1.005-1.030)
[2022-05-13] MEDS ORDERED: CEPH500T MT (09:44)
== END 2022-05-13 09:49 | disposition home or self-care (01) ==
LOC: ER 07:32
DX: N39.0 Urinary tract infection, site not specified (principal); J45.909 Unspecified asthma, uncomplicated; F31.9 Bipolar disorder, unspecified; E11.9 Type 2 diabetes mellitus without complications; I10 Essential (primary) hypertension; Z98.890 Other specified postprocedural states; F12.10 Cannabis abuse, uncomplicated; Z79.899 Other long term (current) drug therapy
CPT/HCPCS: 81003; 99283

== ENCOUNTER 2022-06-21 09:02 | Emergency (ER) | payer OTHER ==
[~2022-06-21] VITALS: Ht 162.6 cm; Wt 104.0 kg
[2022-06-21 12:50] LABS: BASOPHILS % 2.2 % (0.0-2.0); EOSINOPHILS % 2.1 % (0.0-5.0); HEMATOCRIT. 39.6 % (36.0-48.0); HEMOGLOBIN. 12.9 g/dL (12.0-16.0); LYMPHOCYTES % 37.2 % (20.0-50.0); MEAN CORPUSCULAR HEMOGLOBIN 22.9 pg (28.0-32.0); MEAN CORPUSCULAR VOLUME 70.4 fL (81.0-99.0); MEAN PLATELET VOLUME 8.8 fl (7.4-10.4); MONOCYTES % 4.8 % (2.0-8.0); NEUTROPHILS % 53.7 % (40.0-76.0); PLATELET 309 x1000/uL (130-400); RED BLOOD CELL COUNT 5.62 mill/uL (4.2-5.4)
[2022-06-21 12:53] LABS: CHLORIDE 102 mEq/L (98-107)
[2022-06-21 13:57] LABS: CLARITY URINE CLEAR (CLEAR); COLOR URINE YELLOW (YELLOW); KETONES URINE 1+ (NEGATIVE); LEUKOCYTE ESTERASE URINE 2+ (NEGATIVE); NITRITE URINE NEGATIVE (NEGATIVE); OCCULT BLOOD URINE NEGATIVE (NEGATIVE); PH URINE 6.5 (4.5-8.0); PROTEIN URINE NEGATIVE (NEGATIVE); SPECIFIC GRAVITY URINE 1.018 (1.005-1.030); UROBILINOGEN URINE 0.2 E.U./dL (0.2-1.0)
[2022-06-21 14:45] VITALS: BP 144/73
== END 2022-06-21 14:46 | disposition home or self-care (01) ==
LOC: ER 09:02
DX: K76.0 Fatty (change of) liver, not elsewhere classified (principal); K59.00 Constipation, unspecified
CPT/HCPCS: 36415; 74176; 80053; 81003; 85025; 99284

== ENCOUNTER 2022-07-16 11:34 | Emergency (ER) | payer OTHER ==
[~2022-07-16] VITALS: Ht 167.6 cm; Wt 82.0 kg
[2022-07-16 11:39] VITALS: BP 172/85
[2022-07-16] MEDS ORDERED: ACETAMINOPHEN 325MG TABLET PO ONE (11:45)
[2022-07-16] MEDS: IBUPROFEN 600MG TABLET PO ONE ×2 (12:06→12:13)
== END 2022-07-16 12:17 | disposition home or self-care (01) ==
LOC: ER 11:34
DX: R51.9 Headache, unspecified (principal); M79.601 Pain in right arm; I10 Essential (primary) hypertension; V49.49XA Driver injured in collision with other motor vehicles in traffic accident, initial encounter; Y93.89 Activity, other specified; Y92.488 Other paved roadways as the place of occurrence of the external cause
CPT/HCPCS: 99283